=== PATIENT | male | born 1960 | race Caucasian/White ===

== ENCOUNTER 2022-11-09 07:09 | Inpatient (IN) | payer MEDICAID ==
[~2022-11-09] VITALS: Ht 170.2 cm; Wt 65.1 kg
[2022-11-09 07:00] VITALS: BP 95/47
[~2022-11-09 07:09] MED LIST: AMIT10TA6 PO; ASPI-416 PO; ATOR40TA71 PO; GABA600T13 PO; LISI20TA28 PO; OMEP20TA23 PO; ROPI0.5T4 PO
[2022-11-09] MEDS ORDERED: acetaminophen 325mg tablet PO PRN (10:00)
[2022-11-09] MEDS ORDERED: magnesium hydroxide 30ml (MOM) UD suspension PO PRN (10:00)
[2022-11-09] MEDS ORDERED: mag hydrox/Alum hydrox/simeth 30ml oral suspension PO PRN (10:00)
[2022-11-09] MEDS ORDERED: ondansetron/PF 4mg/2ml inj IV PRN (10:00)
[2022-11-09] MEDS: normal saline 1000ml 1,000 ML IV SCH ×3 (10:09→21:31)
[2022-11-09 11:00] VITALS: BP 105/52
--- NOTE | 2022-11-09 11:46 | NUR ---
paged at approx [phone] - Pt 3601T, Maik Hodge, transferred from [facility], was on 5150 hold for SI, currently has a sitter, charge nurse wants to know if we can d/c the sitter. Please advise. Carolina Rios @[phone].
--- NOTE | 2022-11-09 11:50 | NUR ---
US called re: Real US on 11/10/22 am, make pt NPO after midnight until US complete. Orders updated.
[2022-11-09 12:53] LABS: ALBUMIN 3.1 G/DL (3.4-5.0); ANION GAP 6 (8-16); BLOOD UREA NITROGEN 124 MG/DL (7-18); BUN/CREATININE RATIO 19.3 (10.0-20.0); CHLORIDE 106 MMOL/L (99-107); CREATININE 6.43 MG/DL (0.60-1.10); GLUCOSE 116 MG/DL (70-104); MAGNESIUM 1.5 MG/DL (1.5-2.4); PHOSPHORUS 2.3 MG/DL (2.3-4.5); SODIUM 137 MMOL/L (135-145); TOTAL CARBON DIOXIDE 25.2 MMOL/L (24-32); eGFR 9 ML/MIN
[2022-11-09 12:59] LABS: CLARITY,URINE CLEAR (Clear); COLOR,URINE STRAW (Yellow); GLUCOSE, URINE NEGATIVE (Neg); KETONES,URINE NEGATIVE (Neg); LEUKOCYTE ESTERASE ,URINE NEGATIVE (Neg); NITRITES, URINE NEGATIVE (Neg); OCCULT BLOOD,URINE NEGATIVE (Neg); PH,URINE 5.5 (4.8-8.0); PROTEIN,URINE NEGATIVE (Neg); UROBILINOGEN,URINE 0.2 E.U/dL (0.2-1.0)
--- NOTE | 2022-11-09 13:00 | NUR ---
UA obtained and sent to lab.
[2022-11-09 13:03] LABS: UA COLLECTION TYPE CLN CATCH MIDSTREAM
[2022-11-09 13:04] LABS: POTASSIUM 6.3 MMOL/L (3.5-5.1)
[2022-11-09] MEDS ORDERED: PATIROMER CALCIUM SORBITEX 8.4 GM POWD.PACK PO ONE (13:50)
[2022-11-09 15:00] VITALS: BP 112/65
--- NOTE | 2022-11-09 15:07 | NUR ---
Pt has [email or web address] 8.4gm packet due @ 1664. Not in pt specific. Please send KAYODE. thanks, Carolina C @[phone].
--- NOTE | 2022-11-09 16:47 | NUR ---
Page sent to at 5040 - Ua [id number], Maik Hodge, psych 5150 hold, currently has sitter. Please contact charge nurse if we can d/c sitter. Please reconcile home meds. Thanks, Carolina Rios @[phone].
--- NOTE | 2022-11-09 17:40 | NUR ---
gave order for sitter, orders updated.
[2022-11-09 18:00] VITALS: BP 112/65
--- NOTE | 2022-11-09 18:31 | NUR ---
AGREE WITH BLENDING PLANT OPERATOR AM ASSESSMENT.
[2022-11-09] MEDS: enoxaparin 30mg/0.3ml syringe SQ SCH (19:38)
[2022-11-09] MEDS: docusate sod 100mg capsule PO SCH (19:38)
[2022-11-09 20:41] LABS: BASOPHILS # (AUTO) 0.1 X10'3 (0-0.2); BASOPHILS % (AUTO) 0.9 % (0-1); EOSINOPHILS # (AUTO) 0.2 X10'3 (0-0.9); EOSINOPHILS % (AUTO) 3.5 % (0-6); HEMATOCRIT 37.5 % (42.0-52.0); HEMOGLOBIN 12.7 g/dl (14.0-17.9); LYMPHOCYTES # (AUTO) 1.1 X10'3 (1.1-4.8); LYMPHOCYTES % (AUTO) 15.4 % (21-51); MEAN CORPUSCULAR HEMOGLOBIN 32.8 PG (27.0-31.0); MEAN CORPUSCULAR VOLUME 96.5 FL (78-98); MEAN PLATELET VOLUME 7.8 FL (7.4-10.4); MONOCYTES # (AUTO) 0.9 X10'3 (0-0.9); MONOCYTES % (AUTO) 12.4 % (2-12); NEUTROPHILS # (AUTO) 4.7 X10'3 (1.8-7.7); NEUTROPHILS % (AUTO) 67.8 % (42-75); PLATELET COUNT 294 X10'3 (140-440); RED BLOOD COUNT 3.89 X10'6 (4.70-6.10); RED CELL DISTRIBUTION WIDTH 12.9 % (11.5-14.5); WHITE BLOOD COUNT 6.9 X10'3 (4.5-11.0)
[2022-11-09 20:56] LABS: ALANINE AMINOTRANSFERASE 32 U/L (12-78); ALBUMIN 3.3 G/DL (3.4-5.0); ALBUMIN/GLOBULIN RATIO 1.1 (1.1-1.5); ALKALINE PHOSPHATASE 110 IU/L (46-116); ANION GAP 8 (8-16); ASPARTATE AMINO TRANSFERASE 27 U/L (10-37); BILIRUBIN,TOTAL 0.2 MG/DL (0.1-1.0); BLOOD UREA NITROGEN 103 MG/DL (7-18); BUN/CREATININE RATIO 21.8 (10.0-20.0); CHLORIDE 109 MMOL/L (99-107); CREATININE 4.72 MG/DL (0.60-1.10); GLUCOSE 160 MG/DL (70-104); MAGNESIUM 1.4 MG/DL (1.5-2.4); PHOSPHORUS 3.2 MG/DL (2.3-4.5); POTASSIUM 5.3 MMOL/L (3.5-5.1); SODIUM 144 MMOL/L (135-145); TOTAL CARBON DIOXIDE 27.3 MMOL/L (24-32); TOTAL PROTEIN 6.4 G/DL (6.4-8.2); eGFR 13 ML/MIN
[2022-11-09 22:00] VITALS: BP 114/72
[2022-11-10] MEDS: normal saline 1000ml 1,000 ML IV SCH ×2 (01:00→06:00)
[2022-11-10 02:00] VITALS: BP 108/62
[2022-11-10 07:00] VITALS: BP 119/67
[2022-11-10 07:08] LABS: BASOPHILS # (AUTO) 0.1 X10'3 (0-0.2); EOSINOPHILS # (AUTO) 0.3 X10'3 (0-0.9); EOSINOPHILS % (AUTO) 4.3 % (0-6); HEMATOCRIT 36.1 % (42.0-52.0); HEMOGLOBIN 12.3 g/dl (14.0-17.9); LYMPHOCYTES # (AUTO) 1.1 X10'3 (1.1-4.8); LYMPHOCYTES % (AUTO) 19.5 % (21-51); MEAN CORPUSCULAR HEMOGLOBIN 32.7 PG (27.0-31.0); MEAN CORPUSCULAR VOLUME 96.3 FL (78-98); MEAN PLATELET VOLUME 7.7 FL (7.4-10.4); MONOCYTES # (AUTO) 0.8 X10'3 (0-0.9); MONOCYTES % (AUTO) 14.3 % (2-12); NEUTROPHILS # (AUTO) 3.6 X10'3 (1.8-7.7); NEUTROPHILS % (AUTO) 60.9 % (42-75); PLATELET COUNT 272 X10'3 (140-440); RED BLOOD COUNT 3.76 X10'6 (4.70-6.10); WHITE BLOOD COUNT 5.9 X10'3 (4.5-11.0)
[2022-11-10 07:25] LABS: ALBUMIN 3.1 G/DL (3.4-5.0); ANION GAP 7 (8-16); BLOOD UREA NITROGEN 81 MG/DL (7-18); BUN/CREATININE RATIO 27.5 (10.0-20.0); CALCIUM 8.9 MG/DL (8.5-10.1); CHLORIDE 115 MMOL/L (99-107); CREATININE 2.95 MG/DL (0.60-1.10); GLUCOSE 91 MG/DL (70-104); MAGNESIUM 1.2 MG/DL (1.5-2.4); PHOSPHORUS 3.2 MG/DL (2.3-4.5); POTASSIUM 5.8 MMOL/L (3.5-5.1); SODIUM 149 MMOL/L (135-145); TOTAL CARBON DIOXIDE 27.4 MMOL/L (24-32); eGFR 22 ML/MIN
[2022-11-10] MEDS: docusate sod 100mg capsule PO SCH ×2 (08:00→19:13)
[2022-11-10] MEDS: enoxaparin 30mg/0.3ml syringe SQ SCH ×2 (08:00→20:22)
--- NOTE | 2022-11-10 08:19 | NUR ---
Pg sent to @ 0819 - Pt 5013F, Maik Hodge, renal US obtained was placed NPO for this test, may we advance diet back to renal and give oral fluids? Mg is 1.2 would u like to add replacement? Please advise. Carolina Rios @[phone].
--- NOTE | 2022-11-10 09:24 | NUR ---
LN spoke with , gave verbal order to lower NS to 100ml/hr, d/c NPO and change to Renal diet, start strict I/O, and one dose Veltassa 8.4gm packet r/t K+ 5.8. Orders updated.
[2022-11-10 11:05] VITALS: BP 144/73
--- NOTE | 2022-11-10 11:36 | NUR ---
page sent to social service @ 5661 -Pt [id number], patient ready to transfer back to psych, 1792 ordered by , please call [facility] and send labs, med clearance for psych eval. Thanks
--- NOTE | 2022-11-10 12:11 | NUR ---
as clinical instructor i reviewed student nurse physical assessment of patient
[2022-11-10] MEDS ORDERED: PATIROMER CALCIUM SORBITEX 8.4 GM POWD.PACK PO ONE (13:00)
[2022-11-10] MEDS ORDERED: PATIROMER CALCIUM SORBITEX 8.4 GM POWD.PACK PO SCH (13:00)
[2022-11-10] MEDS: dextrose 5%-lactated ringers 1,000 ML IV SCH ×2 (14:42→14:59)
[2022-11-10 15:07] VITALS: BP 137/78
--- NOTE | 2022-11-10 18:45 | NUR ---
AGREE WITH DIRECT MARKETING ANALYST AM ASSESSMENT
[2022-11-10] MEDS: SODIUM ZIRCONIUM CYCLOSILICATE 10 GM POWD.PACK PO SCH (20:27)
[2022-11-11] MEDS: dextrose 5%-lactated ringers 1,000 ML IV SCH ×2 (01:20→10:00)
[2022-11-11] MEDS ORDERED: LORazepam 2 mg/ml vial IV ONE (01:35)
[2022-11-11 06:47] LABS: BASOPHILS # (AUTO) 0.1 X10'3 (0-0.2); BASOPHILS % (AUTO) 0.8 % (0-1); EOSINOPHILS # (AUTO) 0.2 X10'3 (0-0.9); EOSINOPHILS % (AUTO) 2.9 % (0-6); HEMATOCRIT 33.7 % (42.0-52.0); HEMOGLOBIN 11.5 g/dl (14.0-17.9); LYMPHOCYTES # (AUTO) 1.1 X10'3 (1.1-4.8); LYMPHOCYTES % (AUTO) 14.8 % (21-51); MEAN CORPUSCULAR HEMOGLOBIN 32.6 PG (27.0-31.0); MEAN CORPUSCULAR HGB CONC 34.1 g/dL (33.0-36.5); MEAN CORPUSCULAR VOLUME 95.6 FL (78-98); MEAN PLATELET VOLUME 7.9 FL (7.4-10.4); MONOCYTES # (AUTO) 0.8 X10'3 (0-0.9); MONOCYTES % (AUTO) 11.6 % (2-12); NEUTROPHILS # (AUTO) 5.1 X10'3 (1.8-7.7); NEUTROPHILS % (AUTO) 69.9 % (42-75); PLATELET COUNT 268 X10'3 (140-440); RED BLOOD COUNT 3.53 X10'6 (4.70-6.10); RED CELL DISTRIBUTION WIDTH 12.8 % (11.5-14.5); WHITE BLOOD COUNT 7.3 X10'3 (4.5-11.0)
[2022-11-11 07:00] VITALS: BP 127/64
[2022-11-11 07:03] LABS: ANION GAP 7 (8-16); BLOOD UREA NITROGEN 39 MG/DL (7-18); BUN/CREATININE RATIO 26.4 (10.0-20.0); CALCIUM 8.5 MG/DL (8.5-10.1); CHLORIDE 111 MMOL/L (99-107); CREATININE 1.48 MG/DL (0.60-1.10); GLUCOSE 144 MG/DL (70-104); PHOSPHORUS 2.8 MG/DL (2.3-4.5); POTASSIUM 4.2 MMOL/L (3.5-5.1); SODIUM 146 MMOL/L (135-145); TOTAL CARBON DIOXIDE 28.1 MMOL/L (24-32); eGFR 49 ML/MIN
[2022-11-11 07:08] LABS: MAGNESIUM 0.9 MG/DL (1.5-2.4)
--- NOTE | 2022-11-11 07:34 | NUR ---
Page sent to @ 0734 - Pt [id number], Maik Hodge, critical Mg 0.9 @ 0636, no replacement ordered. Please advise. sabrina Rios @[phone].
[2022-11-11] MEDS ORDERED: potassium Cl 20 mEq SR tablet PO PRN ×2 (08:30)
[2022-11-11] MEDS ORDERED: magnesium Cl slow-release 64mg tablet PO PRN (08:30)
[2022-11-11] MEDS: enoxaparin 30mg/0.3ml syringe SQ SCH (09:52)
[2022-11-11] MEDS: SODIUM ZIRCONIUM CYCLOSILICATE 10 GM POWD.PACK PO SCH (09:52)
[2022-11-11] MEDS: docusate sod 100mg capsule PO SCH (09:52)
[2022-11-11 11:00] VITALS: BP 121/68
[2022-11-11] MEDS ORDERED: magnesium 4gm in 100ml NS 100 ML IV ONE (11:25)
--- NOTE | 2022-11-11 11:48 | NUR ---
Page sent to @ 589 - Pt 1700F, [facility] cannot transfer back with IV, IV has infiltrated, may we d/c the D5 and transfer back to CB and do PO meds? Please advise KAYODE awaiting response with bed hold. Carolina Lucas @[phone].
--- NOTE | 2022-11-11 13:13 | NUR ---
gave verbal order to d/c IV and meds (IV was infiltrated). gave final dc order to transfer to [facility]. PEE gave verbal report to Mary Alice on [facility]. Pt signed d/c paperwork and took all belongings to [facility] unit. PIV d/c'd with cannula intact. Pt acknowledged understanding that he was being transferred to [facility] unit.
[2022-11-11] MEDS ORDERED: OLAN15TA3 PO (17:27)
[2022-11-11] MEDS ORDERED: PANT20TA18 PO (17:27)
[2022-11-11] MEDS ORDERED: LISI20TA28 PO (17:27)
[2022-11-11] MEDS ORDERED: ESCI20TA PO (17:28)
[2022-11-11] MEDS ORDERED: QUEtiapine 25mg tablet PO SCH (21:00)
== END 2022-11-11 13:57 | DRG 469 ==
LOC: PCU 3S 07:09
PROVIDERS: ADMIT Internal Medicine; ATTEND Internal Medicine
DX: N17.0 Acute kidney failure with tubular necrosis (principal); R45.851 Suicidal ideations; I95.9 Hypotension, unspecified; E87.8 Other disorders of electrolyte and fluid balance, not elsewhere classified; E86.0 Dehydration; E78.5 Hyperlipidemia, unspecified; G62.9 Polyneuropathy, unspecified; E87.5 Hyperkalemia; E83.42 Hypomagnesemia; F33.9 Major depressive disorder, recurrent, unspecified; I10 Essential (primary) hypertension; Z88.5 Allergy status to narcotic agent; Z88.8 Allergy status to other drugs, medicaments and biological substances; Z79.899 Other long term (current) drug therapy; Z79.82 Long term (current) use of aspirin
CPT/HCPCS: 36415; 80048; 80053; 81003; 82570; 82948; 83735; 83930; 83935; 84100; 84300; 85025; 87081; 93975; A4349; A4649; G0378; J1650; J2060; J7030; J7121

== ENCOUNTER 2023-09-30 19:13 | Emergency (ER) | payer MEDICAID ==
[~2023-09-30] VITALS: Ht 167.6 cm; Wt 75.0 kg
[~2023-09-30 19:13] MED LIST changes: -AMIT10TA6 PO; +ESCI-8 PO; -GABA600T13 PO; -LISI20TA28 PO; +LORA-268 PO; +MAGN64TA10 PO; +OLAN15TA3 PO; -OMEP20TA23 PO; +PANT20TA18 PO; +POTA-197 PO; -ROPI0.5T4 PO
[2023-09-30] MEDS: haloperidol lactate 5mg/ml inj IM ONE (20:50)
[2023-09-30] MEDS: LORazepam 2 mg/ml vial IM ONE (20:50)
[2023-09-30 22:33] LABS: BASOPHILS # (AUTO) 0.1 X10'3 (0-0.2); BASOPHILS % (AUTO) 0.3 % (0-1); EOSINOPHILS # (AUTO) 0.1 X10'3 (0-0.9); EOSINOPHILS % (AUTO) 0.4 % (0-6); HEMOGLOBIN 15.7 g/dl (14.0-17.9); LYMPHOCYTES # (AUTO) 1.8 X10'3 (1.1-4.8); LYMPHOCYTES % (AUTO) 12.3 % (21-51); MEAN CORPUSCULAR HGB CONC 34.9 g/dL (33.0-36.5); MEAN CORPUSCULAR VOLUME 94.5 FL (78-98); MEAN PLATELET VOLUME 7.3 FL (7.4-10.4); MONOCYTES # (AUTO) 1.3 X10'3 (0-0.9); MONOCYTES % (AUTO) 9.1 % (2-12); NEUTROPHILS # (AUTO) 11.4 X10'3 (1.8-7.7); NEUTROPHILS % (AUTO) 77.9 % (42-75); PLATELET COUNT 528 X10'3 (140-440); RED BLOOD COUNT 4.76 X10'6 (4.70-6.10); RED CELL DISTRIBUTION WIDTH 12.9 % (11.5-14.5); WHITE BLOOD COUNT 14.7 X10'3 (4.5-11.0)
[2023-09-30 22:52] LABS: ALBUMIN 4.5 G/DL (3.4-5.0); ANION GAP 16 (8-16); BLOOD UREA NITROGEN 36 MG/DL (7-18); BUN/CREATININE RATIO 29.5 (10.0-20.0); CALCIUM 10.2 MG/DL (8.5-10.1); CHLORIDE 102 MMOL/L (99-107); CREATININE 1.22 MG/DL (0.60-1.10); ETHANOL < 10 MG/DL (<10); GLUCOSE 121 MG/DL (70-104); POTASSIUM 4.4 MMOL/L (3.5-5.1); SODIUM 142 MMOL/L (135-145); THYROID STIMULATING HORMONE 2.57 ulU/ml (0.34-4.50); TOTAL CARBON DIOXIDE 23.8 MMOL/L (24-32); eGFR 61 ML/MIN
[2023-10-01] MEDS ORDERED: ATOR40TA72 (10:08)
[2023-10-01 10:20] LABS: BILIRUBIN,URINE MODERATE (Neg); CLARITY,URINE CLEAR (Clear); GLUCOSE, URINE NEGATIVE (Neg); KETONES,URINE 40 mg/dl (Neg); LEUKOCYTE ESTERASE ,URINE NEGATIVE (Neg); NITRITES, URINE NEGATIVE (Neg); OCCULT BLOOD,URINE NEGATIVE (Neg); PH,URINE 5.5 (4.8-8.0); PROTEIN,URINE NEGATIVE (Neg); UROBILINOGEN,URINE 0.2 E.U/dL (0.2-1.0)
[2023-10-01 10:25] LABS: URINE AMPHETAMINE SCREEN NEGATIVE (Neg); URINE BARBITUATE SCREEN NEGATIVE (Neg); URINE BENZODIAZEPINES SCREEN NEGATIVE (Neg); URINE CANNABINOID SCREEN NEGATIVE (Neg); URINE COCAINE SCREEN NEGATIVE (Neg); URINE METHADONE SCREEN NEGATIVE (Neg); URINE OPIATE SCREEN NEGATIVE (Neg); URINE PHENCYCLIDINE SCREEN NEGATIVE (Neg)
[2023-10-01 10:26] LABS: COLOR,URINE AMBER (Yellow); UA COLLECTION TYPE CLN CATCH MIDSTREAM
[2023-10-01] MEDS ORDERED: LISI20TA28 PO (10:58)
[2023-10-01] MEDS ORDERED: GLIM2TAB6 PO (10:58)
[2023-10-01] MEDS ORDERED: OMEP20CA16 PO (10:58)
[2023-10-01] MEDS ORDERED: MAGN500T2 (10:58)
[2023-10-01] MEDS ORDERED: ESCI-8 PO (10:59)
[2023-10-01 14:10] VITALS: BP 128/79; PULSE 91; RESP 16; TEMP 97.9; O2SAT 94
== END 2023-10-01 13:50 | disposition home or self-care (01) ==
LOC: ER 19:15
DX: F29 Unspecified psychosis not due to a substance or known physiological condition (principal); Z20.822 Contact with and (suspected) exposure to COVID-19; E78.00 Pure hypercholesterolemia, unspecified; I10 Essential (primary) hypertension; E11.9 Type 2 diabetes mellitus without complications; Z73.6 Limitation of activities due to disability; Z88.1 Allergy status to other antibiotic agents; Z88.5 Allergy status to narcotic agent; Z88.8 Allergy status to other drugs, medicaments and biological substances; Z79.82 Long term (current) use of aspirin; Z79.899 Other long term (current) drug therapy
CPT/HCPCS: 36415; 80048; 80305; 80320; 81003; 84443; 85025; 87811; 96372; 99285; J1630; J2060

== ENCOUNTER 2023-10-07 15:05 | Emergency (ER) | payer MEDICAID ==
[~2023-10-07] VITALS: Ht 170.2 cm; Wt 66.5 kg
[~2023-10-07 15:05] MED LIST changes: -ASPI-416 PO; -ATOR40TA71 PO; +ATOR40TA72; +GLIM2TAB6 PO; +LISI20TA28 PO; -LORA-268 PO; +MAGN500T2; -MAGN64TA10 PO; -OLAN15TA3 PO; +OMEP20CA16 PO; -PANT20TA18 PO; -POTA-197 PO
[2023-10-07 15:48] VITALS: BP 116/85; PULSE 94; TEMP 98.5; O2SAT 100
[2023-10-07] MEDS ORDERED: ondansetron/PF 4mg/2ml inj IV ONE (16:55)
[2023-10-07 18:23] LABS: BASOPHILS # (AUTO) 0.1 X10'3 (0-0.2); BASOPHILS % (AUTO) 0.5 % (0-1); EOSINOPHILS # (AUTO) 0.1 X10'3 (0-0.9); EOSINOPHILS % (AUTO) 1.1 % (0-6); HEMATOCRIT 41.4 % (42.0-52.0); HEMOGLOBIN 14.2 g/dl (14.0-17.9); LYMPHOCYTES # (AUTO) 2.2 X10'3 (1.1-4.8); LYMPHOCYTES % (AUTO) 17.7 % (21-51); MEAN CORPUSCULAR HEMOGLOBIN 32.8 PG (27.0-31.0); MEAN CORPUSCULAR HGB CONC 34.4 g/dL (33.0-36.5); MEAN CORPUSCULAR VOLUME 95.4 FL (78-98); MEAN PLATELET VOLUME 7.4 FL (7.4-10.4); MONOCYTES % (AUTO) 7.9 % (2-12); NEUTROPHILS # (AUTO) 9.1 X10'3 (1.8-7.7); NEUTROPHILS % (AUTO) 72.8 % (42-75); PLATELET COUNT 461 X10'3 (140-440); RED BLOOD COUNT 4.34 X10'6 (4.70-6.10); WHITE BLOOD COUNT 12.5 X10'3 (4.5-11.0)
[2023-10-07 18:37] LABS: ALBUMIN 4.3 G/DL (3.4-5.0); ANION GAP 13 (8-16); BLOOD UREA NITROGEN 19 MG/DL (7-18); BUN/CREATININE RATIO 19.4 (10.0-20.0); CHLORIDE 99 MMOL/L (99-107); CREATININE 0.98 MG/DL (0.60-1.10); GLUCOSE 87 MG/DL (70-104); POTASSIUM 3.8 MMOL/L (3.5-5.1); SODIUM 141 MMOL/L (135-145); TOTAL CARBON DIOXIDE 29.1 MMOL/L (24-32); eCRCL 75 ML/MIN; eGFR 78 ML/MIN
[2023-10-07 18:42] LABS: ETHANOL < 10 MG/DL (<10)
[2023-10-07 19:23] LABS: URINE AMPHETAMINE SCREEN NEGATIVE (Neg); URINE BARBITUATE SCREEN NEGATIVE (Neg); URINE BENZODIAZEPINES SCREEN NEGATIVE (Neg); URINE CANNABINOID SCREEN NEGATIVE (Neg); URINE COCAINE SCREEN NEGATIVE (Neg); URINE METHADONE SCREEN NEGATIVE (Neg); URINE OPIATE SCREEN NEGATIVE (Neg); URINE PHENCYCLIDINE SCREEN NEGATIVE (Neg)
[2023-10-07 20:03] VITALS: RESP 16
== END 2023-10-07 20:13 | disposition home or self-care (01) ==
LOC: ER 15:06
DX: F29 Unspecified psychosis not due to a substance or known physiological condition (principal); Z20.822 Contact with and (suspected) exposure to COVID-19; E78.00 Pure hypercholesterolemia, unspecified; I10 Essential (primary) hypertension; F32.A Depression, unspecified; E11.9 Type 2 diabetes mellitus without complications; Z88.1 Allergy status to other antibiotic agents; Z88.5 Allergy status to narcotic agent; Z79.899 Other long term (current) drug therapy
CPT/HCPCS: 36415; 80048; 80305; 80320; 85025; 87811; 99283; 99284

== ENCOUNTER 2023-11-11 10:11 | Emergency (ER) | payer MEDICAID ==
[~2023-11-11] VITALS: Ht 165.1 cm; Wt 75.0 kg
[~2023-11-11 10:11] MED LIST changes: -ATOR40TA72; +ATOR40TA72 PO
[2023-11-11 10:47] LABS: BASOPHILS % (AUTO) 0.4 % (0-1); EOSINOPHILS # (AUTO) 0.1 X10'3 (0-0.9); EOSINOPHILS % (AUTO) 1.3 % (0-6); HEMATOCRIT 43.2 % (42.0-52.0); HEMOGLOBIN 14.6 g/dl (14.0-17.9); LYMPHOCYTES # (AUTO) 1.1 X10'3 (1.1-4.8); LYMPHOCYTES % (AUTO) 11.2 % (21-51); MEAN CORPUSCULAR HEMOGLOBIN 32.4 PG (27.0-31.0); MEAN CORPUSCULAR HGB CONC 33.8 g/dL (33.0-36.5); MEAN CORPUSCULAR VOLUME 95.8 FL (78-98); MEAN PLATELET VOLUME 7.1 FL (7.4-10.4); MONOCYTES # (AUTO) 0.6 X10'3 (0-0.9); MONOCYTES % (AUTO) 6.5 % (2-12); NEUTROPHILS # (AUTO) 8.1 X10'3 (1.8-7.7); NEUTROPHILS % (AUTO) 80.6 % (42-75); PLATELET COUNT 405 X10'3 (140-440); RED BLOOD COUNT 4.51 X10'6 (4.70-6.10); RED CELL DISTRIBUTION WIDTH 12.8 % (11.5-14.5)
[2023-11-11 11:04] LABS: ALBUMIN 3.5 G/DL (3.4-5.0); ANION GAP 7 (8-16); BLOOD UREA NITROGEN 17 MG/DL (7-18); BUN/CREATININE RATIO 15.7 (10.0-20.0); CALCIUM 9.2 MG/DL (8.5-10.1); CHLORIDE 107 MMOL/L (99-107); CREATININE 1.08 MG/DL (0.60-1.10); GLUCOSE 107 MG/DL (70-104); POTASSIUM 3.6 MMOL/L (3.5-5.1); SODIUM 144 MMOL/L (135-145); THYROID STIMULATING HORMONE 0.68 ulU/ml (0.34-4.50); TOTAL CARBON DIOXIDE 29.6 MMOL/L (24-32); eCRCL 63 ML/MIN; eGFR 70 ML/MIN
[2023-11-11 11:07] LABS: BILIRUBIN,URINE NEGATIVE (Neg); CLARITY,URINE SLIGHTLY CLOUDY (Clear); COLOR,URINE YELLOW (Yellow); GLUCOSE, URINE 100 mg/dl (Neg); KETONES,URINE NEGATIVE (Neg); LEUKOCYTE ESTERASE ,URINE NEGATIVE (Neg); NITRITES, URINE NEGATIVE (Neg); OCCULT BLOOD,URINE NEGATIVE (Neg); PH,URINE 6.5 (4.8-8.0); PROTEIN,URINE NEGATIVE (Neg)
[2023-11-11 11:14] LABS: ETHANOL < 10 MG/DL (<10)
[2023-11-11 11:16] LABS: UA COLLECTION TYPE VOIDED
[2023-11-11 11:18] LABS: MUCUS STRANDS MANY /LPF (Neg); SQUAMOUS EPITHELIAL CELL,UR FEW /LPF (FEW)
[2023-11-11 11:19] LABS: BACTERIA,URINE FEW /HPF (Neg); RBC,URINE 0-2 /HPF (0-2); WBC,URINE 0-4 /HPF (0-4)
[2023-11-11] MEDS: LORazepam 1 MG tablet PO ONE (11:28)
[2023-11-11 11:41] LABS: URINE AMPHETAMINE SCREEN NEGATIVE (Neg); URINE BARBITUATE SCREEN NEGATIVE (Neg); URINE BENZODIAZEPINES SCREEN NEGATIVE (Neg); URINE CANNABINOID SCREEN NEGATIVE (Neg); URINE COCAINE SCREEN NEGATIVE (Neg); URINE METHADONE SCREEN NEGATIVE (Neg); URINE OPIATE SCREEN NEGATIVE (Neg); URINE PHENCYCLIDINE SCREEN NEGATIVE (Neg)
[2023-11-12] MEDS: LORazepam 1 MG tablet PO ONE (08:16)
[2023-11-12] MEDS: glimepiride 1 MG tablet PO SCH (08:16)
[2023-11-12] MEDS: pantoprazole 40mg Tablet.DR PO SCH (08:16)
[2023-11-12] MEDS: atorvastatin 20mg tablet PO SCH (08:16)
[2023-11-12] MEDS: ESCITALOPRAM 10 mg tablet 10 MG TABLET PO SCH (08:16)
[2023-11-12] MEDS: LORazepam 1 MG tablet PO PRN (19:43)
[2023-11-13 05:52] VITALS: BP 134/85; PULSE 71; RESP 16; TEMP 98.1; O2SAT 98
[2023-11-13] MEDS: LORazepam 1 MG tablet PO ONE (09:41)
== END 2023-11-13 10:27 | disposition still patient (30) ==
LOC: ER 10:12
DX: F79 Unspecified intellectual disabilities (principal); Z20.822 Contact with and (suspected) exposure to COVID-19; E78.00 Pure hypercholesterolemia, unspecified; I10 Essential (primary) hypertension; E11.9 Type 2 diabetes mellitus without complications; F32.A Depression, unspecified; Z88.1 Allergy status to other antibiotic agents; Z79.899 Other long term (current) drug therapy; Z88.5 Allergy status to narcotic agent; Z79.1 Long term (current) use of non-steroidal anti-inflammatories (NSAID)
CPT/HCPCS: 36415; 80048; 80305; 80320; 81001; 82948; 84443; 85025; 87811; 99285

== ENCOUNTER 2023-11-15 09:48 | Inpatient (IN) | payer MEDICAID ==
[~2023-11-15] VITALS: Ht 172.7 cm; Wt 62.9 kg
[~2023-11-15 09:48] MED LIST changes: -LISI20TA28 PO
[2023-11-15 10:30] LABS: BASOPHILS % (AUTO) 0.3 % (0-1); EOSINOPHILS # (AUTO) 0.1 X10'3 (0-0.9); EOSINOPHILS % (AUTO) 0.8 % (0-6); HEMATOCRIT 44.4 % (42.0-52.0); HEMOGLOBIN 15.4 g/dl (14.0-17.9); LYMPHOCYTES # (AUTO) 1.6 X10'3 (1.1-4.8); LYMPHOCYTES % (AUTO) 14.7 % (21-51); MEAN CORPUSCULAR HEMOGLOBIN 33.3 PG (27.0-31.0); MEAN CORPUSCULAR HGB CONC 34.6 g/dL (33.0-36.5); MEAN CORPUSCULAR VOLUME 96.1 FL (78-98); MONOCYTES # (AUTO) 0.9 X10'3 (0-0.9); MONOCYTES % (AUTO) 8.7 % (2-12); NEUTROPHILS % (AUTO) 75.5 % (42-75); PLATELET COUNT 443 X10'3 (140-440); RED BLOOD COUNT 4.62 X10'6 (4.70-6.10); RED CELL DISTRIBUTION WIDTH 13.1 % (11.5-14.5); WHITE BLOOD COUNT 10.6 X10'3 (4.5-11.0)
[2023-11-15 10:37] LABS: ALBUMIN 3.9 G/DL (3.4-5.0); ANION GAP 11 (8-16); BLOOD UREA NITROGEN 18 MG/DL (7-18); BUN/CREATININE RATIO 19.8 (10.0-20.0); CALCIUM 9.6 MG/DL (8.5-10.1); CHLORIDE 104 MMOL/L (99-107); CREATININE 0.91 MG/DL (0.60-1.10); ETHANOL < 10 MG/DL (<10); GLUCOSE 111 MG/DL (70-104); POTASSIUM 3.4 MMOL/L (3.5-5.1); SODIUM 143 MMOL/L (135-145); TOTAL CARBON DIOXIDE 27.9 MMOL/L (24-32); eCRCL 74 ML/MIN; eGFR 85 ML/MIN
[2023-11-15 10:58] LABS: BILIRUBIN,URINE SMALL (Neg); CLARITY,URINE CLEAR (Clear); COLOR,URINE YELLOW (Yellow); GLUCOSE, URINE NEGATIVE (Neg); KETONES,URINE 15 mg/dl (Neg); LEUKOCYTE ESTERASE ,URINE NEGATIVE (Neg); NITRITES, URINE NEGATIVE (Neg); OCCULT BLOOD,URINE NEGATIVE (Neg); PROTEIN,URINE NEGATIVE (Neg); URINE AMPHETAMINE SCREEN NEGATIVE (Neg); URINE BARBITUATE SCREEN NEGATIVE (Neg); URINE BENZODIAZEPINES SCREEN NEGATIVE (Neg); URINE CANNABINOID SCREEN NEGATIVE (Neg); URINE COCAINE SCREEN NEGATIVE (Neg); URINE METHADONE SCREEN NEGATIVE (Neg); URINE OPIATE SCREEN NEGATIVE (Neg); URINE PHENCYCLIDINE SCREEN NEGATIVE (Neg); UROBILINOGEN,URINE 0.2 E.U/dL (0.2-1.0)
[2023-11-15 11:02] LABS: UA COLLECTION TYPE CLN CATCH MIDSTREAM
[2023-11-15] MEDS: OLANZapine 5mg rapidly disint. tablet PO ONE (11:21)
[2023-11-15] MEDS: LORazepam 1 MG tablet PO ONE (11:21)
[2023-11-15] MEDS: haloperidol lactate 5mg/ml inj IM ONE (12:12)
[2023-11-16] MEDS: LORazepam 1 MG tablet PO ONE (05:23)
[2023-11-16] MEDS: haloperidol 5mg tablet PO ONE (05:23)
[2023-11-16] MEDS ORDERED: TRAZ-251 PO (07:23)
[2023-11-16] MEDS ORDERED: OLAN5TAB29 PO (07:23)
[2023-11-16] MEDS: OLANZapine 5mg rapidly disint. tablet PO SCH (20:41)
[2023-11-16] MEDS: traZODone 50mg tablet PO SCH (20:41)
[2023-11-16] MEDS: haloperidol lactate 5mg/ml inj IM ONE (21:52)
[2023-11-16] MEDS: LORazepam 2 mg/ml vial IM ONE (21:52)
[2023-11-17] MEDS: atorvastatin 20mg tablet PO SCH (09:02)
[2023-11-17] MEDS: pantoprazole 40mg Tablet.DR PO SCH (09:03)
[2023-11-17] MEDS: ESCITALOPRAM 10 mg tablet 10 MG TABLET PO SCH (09:03)
[2023-11-17 20:00] VITALS: BP 129/83; PULSE 74; RESP 16; TEMP 97.6; O2SAT 99
[2023-11-17] MEDS: LIDOcaine 5% patch TP ONE (21:39)
[2023-11-18 06:54] VITALS: RESP 16; O2SAT 99
[2023-11-18 07:23] VITALS: BP 109/68; PULSE 72; RESP 16; TEMP 97.9; O2SAT 97
[2023-11-18] MEDS: MESSAGE TO PHARMACY PO ONE (13:05)
[2023-11-18] MEDS ORDERED: DEXTROSE 15 GM of carb/4 tabs (each vial/BOTTLE has 4 tablets) PO PRN ×2 (13:05)
[2023-11-18] MEDS ORDERED: dextrose 50%-water 50ml dispensing syringe IV PRN ×2 (13:05)
[2023-11-18] MEDS ORDERED: glucagon, human recombinant 1mg kit SUBCUT PRN (13:05)
[2023-11-18] MEDS ORDERED: INSULIN LISPRO 100 UNIT/ML INSULN.PEN MULTI-DOSE SQ SCH (13:05)
[2023-11-18] MEDS: LORazepam 1 MG tablet PO ONE (14:53)
[2023-11-18 19:00] VITALS: RESP 16; O2SAT 99
[2023-11-18 19:10] VITALS: BP 125/75; PULSE 66; RESP 16; TEMP 97.6; O2SAT 99
[2023-11-18] MEDS: insulin glargine (Lantus) pen - multi-dose SQ SCH (21:00)
[2023-11-19 07:00] VITALS: RESP 18; O2SAT 96
[2023-11-19 07:30] VITALS: BP 105/69; PULSE 85; RESP 18; TEMP 97.6; O2SAT 96
[2023-11-19 13:28] LABS: BASOPHILS % (AUTO) 0.5 % (0-1); EOSINOPHILS # (AUTO) 0.2 X10'3 (0-0.9); HEMATOCRIT 45.7 % (42.0-52.0); HEMOGLOBIN 15.6 g/dl (14.0-17.9); LYMPHOCYTES # (AUTO) 1.4 X10'3 (1.1-4.8); LYMPHOCYTES % (AUTO) 15.3 % (21-51); MEAN CORPUSCULAR HEMOGLOBIN 32.9 PG (27.0-31.0); MEAN CORPUSCULAR HGB CONC 34.1 g/dL (33.0-36.5); MEAN CORPUSCULAR VOLUME 96.4 FL (78-98); MONOCYTES # (AUTO) 0.8 X10'3 (0-0.9); MONOCYTES % (AUTO) 8.4 % (2-12); NEUTROPHILS # (AUTO) 6.8 X10'3 (1.8-7.7); NEUTROPHILS % (AUTO) 73.8 % (42-75); PLATELET COUNT 424 X10'3 (140-440); RED BLOOD COUNT 4.74 X10'6 (4.70-6.10); RED CELL DISTRIBUTION WIDTH 13.2 % (11.5-14.5); WHITE BLOOD COUNT 9.2 X10'3 (4.5-11.0)
[2023-11-19 13:45] LABS: ALANINE AMINOTRANSFERASE 43 U/L (12-78); ALBUMIN 3.6 G/DL (3.4-5.0); ALBUMIN/GLOBULIN RATIO 0.9 (1.1-1.5); ALKALINE PHOSPHATASE 106 IU/L (46-116); ANION GAP 5 (8-16); ASPARTATE AMINO TRANSFERASE 34 U/L (10-37); BILIRUBIN,TOTAL 0.4 MG/DL (0.1-1.0); BLOOD UREA NITROGEN 15 MG/DL (7-18); BUN/CREATININE RATIO 16.3 (10.0-20.0); CALCIUM 9.4 MG/DL (8.5-10.1); CHLORIDE 104 MMOL/L (99-107); CREATININE 0.92 MG/DL (0.60-1.10); GLUCOSE 111 MG/DL (70-104); POTASSIUM 3.9 MMOL/L (3.5-5.1); SODIUM 143 MMOL/L (135-145); TOTAL CARBON DIOXIDE 33.7 MMOL/L (24-32); TOTAL PROTEIN 7.5 G/DL (6.4-8.2); eCRCL 74 ML/MIN; eGFR 84 ML/MIN
[2023-11-19] MEDS: LORazepam 1 MG tablet PO PRN (13:50)
[2023-11-19 16:05] LABS: HBSAG SCREEN Negative (Negative); HEP B CORE AB, IGM Negative (Negative); HEP B CORE AB, TOT Negative (Negative); HEPATITIS C VIRUS ANTIBODY Non Reactive (Non Reactive)
[2023-11-19 19:00] VITALS: BP 142/85; PULSE 69; RESP 20; TEMP 96.8; O2SAT 97
[2023-11-19] MEDS: traZODone 50mg tablet PO SCH (20:14)
[2023-11-20 07:00] VITALS: RESP 16; O2SAT 96
[2023-11-20 07:47] LABS: BASOPHILS % (AUTO) 0.5 % (0-1); EOSINOPHILS # (AUTO) 0.2 X10'3 (0-0.9); EOSINOPHILS % (AUTO) 2.3 % (0-6); HEMATOCRIT 45.5 % (42.0-52.0); HEMOGLOBIN 15.7 g/dl (14.0-17.9); LYMPHOCYTES # (AUTO) 1.3 X10'3 (1.1-4.8); LYMPHOCYTES % (AUTO) 16.1 % (21-51); MEAN CORPUSCULAR HEMOGLOBIN 33.1 PG (27.0-31.0); MEAN CORPUSCULAR HGB CONC 34.5 g/dL (33.0-36.5); MEAN CORPUSCULAR VOLUME 95.7 FL (78-98); MEAN PLATELET VOLUME 7.2 FL (7.4-10.4); MONOCYTES # (AUTO) 0.7 X10'3 (0-0.9); MONOCYTES % (AUTO) 9.4 % (2-12); NEUTROPHILS # (AUTO) 5.7 X10'3 (1.8-7.7); NEUTROPHILS % (AUTO) 71.7 % (42-75); PLATELET COUNT 409 X10'3 (140-440); RED BLOOD COUNT 4.76 X10'6 (4.70-6.10); RED CELL DISTRIBUTION WIDTH 13.1 % (11.5-14.5)
[2023-11-20] MEDS: PALIPERIDONE 3 MG TAB.ER.24 PO SCH (07:49)
[2023-11-20 08:00] VITALS: BP 106/69; PULSE 68; RESP 14; TEMP 98; O2SAT 97
[2023-11-20 08:00] LABS: ALANINE AMINOTRANSFERASE 36 U/L (12-78); ALBUMIN 3.7 G/DL (3.4-5.0); ALBUMIN/GLOBULIN RATIO 0.9 (1.1-1.5); ALKALINE PHOSPHATASE 114 IU/L (46-116); ANION GAP 9 (8-16); ASPARTATE AMINO TRANSFERASE 28 U/L (10-37); BILIRUBIN,TOTAL 0.4 MG/DL (0.1-1.0); BLOOD UREA NITROGEN 21 MG/DL (7-18); BUN/CREATININE RATIO 23.6 (10.0-20.0); CALCIUM 9.8 MG/DL (8.5-10.1); CHLORIDE 103 MMOL/L (99-107); CREATININE 0.89 MG/DL (0.60-1.10); GLUCOSE 153 MG/DL (70-104); POTASSIUM 4.2 MMOL/L (3.5-5.1); SODIUM 140 MMOL/L (135-145); TOTAL PROTEIN 7.6 G/DL (6.4-8.2); eCRCL 76 ML/MIN; eGFR 87 ML/MIN
[2023-11-20 19:00] VITALS: RESP 17; O2SAT 97
[2023-11-20 20:00] VITALS: BP 114/63; PULSE 83; RESP 17; TEMP 98.7; O2SAT 97
[2023-11-20] MEDS: divalproex sod 250mg ER (24-hour) tablet PO SCH (20:02)
[2023-11-21 07:00] VITALS: RESP 16; O2SAT 95
[2023-11-21 08:00] VITALS: BP 102/61; PULSE 78; TEMP 96.7; O2SAT 98
[2023-11-21 08:14] LABS: BASOPHILS # (AUTO) 0.1 X10'3 (0-0.2); BASOPHILS % (AUTO) 1.1 % (0-1); EOSINOPHILS # (AUTO) 0.2 X10'3 (0-0.9); EOSINOPHILS % (AUTO) 2.2 % (0-6); HEMATOCRIT 45.1 % (42.0-52.0); HEMOGLOBIN 15.8 g/dl (14.0-17.9); LYMPHOCYTES # (AUTO) 1.4 X10'3 (1.1-4.8); LYMPHOCYTES % (AUTO) 17.9 % (21-51); MEAN CORPUSCULAR HEMOGLOBIN 33.5 PG (27.0-31.0); MEAN CORPUSCULAR HGB CONC 35.1 g/dL (33.0-36.5); MEAN CORPUSCULAR VOLUME 95.4 FL (78-98); MEAN PLATELET VOLUME 7.3 FL (7.4-10.4); MONOCYTES # (AUTO) 0.7 X10'3 (0-0.9); MONOCYTES % (AUTO) 8.6 % (2-12); NEUTROPHILS # (AUTO) 5.6 X10'3 (1.8-7.7); NEUTROPHILS % (AUTO) 70.2 % (42-75); PLATELET COUNT 412 X10'3 (140-440); RED BLOOD COUNT 4.72 X10'6 (4.70-6.10); RED CELL DISTRIBUTION WIDTH 13.2 % (11.5-14.5)
[2023-11-21 08:17] LABS: ALANINE AMINOTRANSFERASE 28 U/L (12-78); ALBUMIN 3.7 G/DL (3.4-5.0); ALKALINE PHOSPHATASE 106 IU/L (46-116); ANION GAP 7 (8-16); ASPARTATE AMINO TRANSFERASE 17 U/L (10-37); BILIRUBIN,TOTAL 0.5 MG/DL (0.1-1.0); BLOOD UREA NITROGEN 22 MG/DL (7-18); BUN/CREATININE RATIO 22.2 (10.0-20.0); CALCIUM 10.1 MG/DL (8.5-10.1); CHLORIDE 102 MMOL/L (99-107); CREATININE 0.99 MG/DL (0.60-1.10); GLUCOSE 152 MG/DL (70-104); POTASSIUM 4.4 MMOL/L (3.5-5.1); SODIUM 141 MMOL/L (135-145); TOTAL CARBON DIOXIDE 31.8 MMOL/L (24-32); TOTAL PROTEIN 7.4 G/DL (6.4-8.2); eCRCL 68 ML/MIN; eGFR 77 ML/MIN
[2023-11-21 19:05] VITALS: RESP 14; O2SAT 98
[2023-11-21 20:00] VITALS: BP 94/61; PULSE 83; RESP 14; TEMP 98; O2SAT 98
[2023-11-22 07:00] VITALS: RESP 16; O2SAT 94
[2023-11-22 07:43] VITALS: BP 117/61; PULSE 67; RESP 16; TEMP 97.8; O2SAT 94
[2023-11-22 08:14] LABS: BASOPHILS # (AUTO) 0.1 X10'3 (0-0.2); EOSINOPHILS # (AUTO) 0.2 X10'3 (0-0.9); EOSINOPHILS % (AUTO) 2.1 % (0-6); HEMATOCRIT 45.4 % (42.0-52.0); HEMOGLOBIN 15.6 g/dl (14.0-17.9); LYMPHOCYTES # (AUTO) 1.4 X10'3 (1.1-4.8); LYMPHOCYTES % (AUTO) 17.4 % (21-51); MEAN CORPUSCULAR HEMOGLOBIN 33.2 PG (27.0-31.0); MEAN CORPUSCULAR HGB CONC 34.4 g/dL (33.0-36.5); MEAN CORPUSCULAR VOLUME 96.4 FL (78-98); MEAN PLATELET VOLUME 7.1 FL (7.4-10.4); MONOCYTES # (AUTO) 0.8 X10'3 (0-0.9); MONOCYTES % (AUTO) 9.6 % (2-12); NEUTROPHILS # (AUTO) 5.5 X10'3 (1.8-7.7); NEUTROPHILS % (AUTO) 69.9 % (42-75); PLATELET COUNT 394 X10'3 (140-440); RED BLOOD COUNT 4.71 X10'6 (4.70-6.10); WHITE BLOOD COUNT 7.9 X10'3 (4.5-11.0)
[2023-11-22 08:17] LABS: ALANINE AMINOTRANSFERASE 27 U/L (12-78); ALBUMIN 3.5 G/DL (3.4-5.0); ALBUMIN/GLOBULIN RATIO 0.9 (1.1-1.5); ALKALINE PHOSPHATASE 133 IU/L (46-116); ANION GAP 9 (8-16); ASPARTATE AMINO TRANSFERASE 13 U/L (10-37); BILIRUBIN,TOTAL 0.3 MG/DL (0.1-1.0); BLOOD UREA NITROGEN 24 MG/DL (7-18); BUN/CREATININE RATIO 22.9 (10.0-20.0); CALCIUM 9.5 MG/DL (8.5-10.1); CHLORIDE 101 MMOL/L (99-107); CREATININE 1.05 MG/DL (0.60-1.10); GLUCOSE 148 MG/DL (70-104); POTASSIUM 4.6 MMOL/L (3.5-5.1); SODIUM 138 MMOL/L (135-145); TOTAL CARBON DIOXIDE 28.4 MMOL/L (24-32); TOTAL PROTEIN 7.3 G/DL (6.4-8.2); eCRCL 65 ML/MIN; eGFR 72 ML/MIN
[2023-11-22 19:31] VITALS: BP 133/76; PULSE 76; RESP 18; TEMP 97.4; O2SAT 98
[2023-11-22 20:16] LABS: CHOL/HDL RATIO 3.6 (0.00-4.99); CHOLESTEROL 171 MG/DL (0-200); HDL CHOLESTEROL 48 MG/DL (35-60); LDL CHOLESTEROL 98 MG/DL (50-100); TRIGLYCERIDES 115 MG/DL (20-135)
[2023-11-22] MEDS: magnesium hydroxide 30ml (MOM) UD suspension PO PRN (21:01)
[2023-11-23 07:00] VITALS: RESP 16; O2SAT 100
[2023-11-23 07:30] VITALS: BP 91/63; PULSE 76; RESP 16; TEMP 97.3; O2SAT 100
[2023-11-23] MEDS: PALIPERIDONE 3 MG TAB.ER.24 PO SCH (07:31)
[2023-11-23 11:27] LABS: BASOPHILS % (AUTO) 0.3 % (0-1); EOSINOPHILS # (AUTO) 0.1 X10'3 (0-0.9); EOSINOPHILS % (AUTO) 1.5 % (0-6); HEMATOCRIT 45.6 % (42.0-52.0); HEMOGLOBIN 15.7 g/dl (14.0-17.9); LYMPHOCYTES # (AUTO) 1.1 X10'3 (1.1-4.8); LYMPHOCYTES % (AUTO) 14.5 % (21-51); MEAN CORPUSCULAR HEMOGLOBIN 33.3 PG (27.0-31.0); MEAN CORPUSCULAR HGB CONC 34.4 g/dL (33.0-36.5); MEAN CORPUSCULAR VOLUME 96.5 FL (78-98); MONOCYTES # (AUTO) 0.6 X10'3 (0-0.9); MONOCYTES % (AUTO) 7.2 % (2-12); NEUTROPHILS # (AUTO) 6.1 X10'3 (1.8-7.7); NEUTROPHILS % (AUTO) 76.5 % (42-75); PLATELET COUNT 356 X10'3 (140-440); RED BLOOD COUNT 4.72 X10'6 (4.70-6.10); RED CELL DISTRIBUTION WIDTH 13.5 % (11.5-14.5); WHITE BLOOD COUNT 7.9 X10'3 (4.5-11.0)
[2023-11-23 11:39] LABS: ALANINE AMINOTRANSFERASE 20 U/L (12-78); ALBUMIN 3.6 G/DL (3.4-5.0); ALBUMIN/GLOBULIN RATIO 0.9 (1.1-1.5); ALKALINE PHOSPHATASE 130 IU/L (46-116); ANION GAP 4 (8-16); ASPARTATE AMINO TRANSFERASE 16 U/L (10-37); BILIRUBIN,TOTAL 0.3 MG/DL (0.1-1.0); BLOOD UREA NITROGEN 18 MG/DL (7-18); BUN/CREATININE RATIO 16.8 (10.0-20.0); CALCIUM 9.3 MG/DL (8.5-10.1); CHLORIDE 97 MMOL/L (99-107); CREATININE 1.07 MG/DL (0.60-1.10); SODIUM 136 MMOL/L (135-145); TOTAL CARBON DIOXIDE 35.4 MMOL/L (24-32); TOTAL PROTEIN 7.6 G/DL (6.4-8.2); eCRCL 63 ML/MIN; eGFR 70 ML/MIN
[2023-11-23 11:57] LABS: GLUCOSE 257 MG/DL (70-104)
[2023-11-23 19:30] VITALS: BP 115/73; PULSE 76; RESP 16; TEMP 97.4; O2SAT 98
[2023-11-24 07:55] VITALS: RESP 16
[2023-11-24 08:51] VITALS: BP 94/60; PULSE 86; RESP 18; TEMP 97.3; O2SAT 97
[2023-11-24 09:23] LABS: % IRON SATURATION 46 % (11-46); IRON 102 UG/DL (53-167); TOTAL IRON BINDING CAPACITY 220 UG/DL (259-388)
[2023-11-24 19:30] VITALS: BP 124/64; PULSE 71; RESP 15; TEMP 98.2; O2SAT 99
[2023-11-25 07:00] VITALS: RESP 16; O2SAT 98
[2023-11-25 08:05] VITALS: BP 110/56; PULSE 73; RESP 16; TEMP 98.2; O2SAT 98
[2023-11-25 18:53] VITALS: BP 113/63; PULSE 77; RESP 18; TEMP 98.1; O2SAT 98
[2023-11-25 19:00] VITALS: RESP 18; O2SAT 98
[2023-11-25 20:18] VITALS: BP 113/63; PULSE 77; RESP 18; TEMP 98.1; O2SAT 98
[2023-11-25 21:51] VITALS: RESP 18; O2SAT 98
[2023-11-26 07:01] VITALS: RESP 16; O2SAT 98
[2023-11-26 08:00] VITALS: BP 92/65; PULSE 73; RESP 16; TEMP 97.3; O2SAT 99
[2023-11-26] MEDS: paliperidone palmitate 156 mg/ml inj.**IM only IM ONE (16:50)
[2023-11-26 19:00] VITALS: RESP 17; O2SAT 98
[2023-11-26 20:00] VITALS: BP 113/69; PULSE 76; RESP 17; TEMP 97.8; O2SAT 98
[2023-11-27 06:58] VITALS: RESP 16; O2SAT 98
[2023-11-27 08:00] VITALS: BP 123/70; PULSE 60; RESP 15; TEMP 98.2; O2SAT 97
[2023-11-27] MEDS: paliperidone palmitate inj 234 MG/1.5 ML SYRINGE IM ONE (14:08)
[2023-11-27 19:00] VITALS: RESP 18; O2SAT 97
[2023-11-27 20:00] VITALS: BP 104/64; PULSE 79; RESP 18; TEMP 97.9; O2SAT 97
[2023-11-28 07:00] VITALS: RESP 15; O2SAT 97
[2023-11-28 08:00] VITALS: BP 116/64; PULSE 58; RESP 14; TEMP 98.5; O2SAT 97
[2023-11-28 19:00] VITALS: RESP 16; O2SAT 97
[2023-11-28 20:00] VITALS: BP 112/67; PULSE 82; RESP 16; TEMP 97.9; O2SAT 97
[2023-11-29 07:00] VITALS: RESP 16; O2SAT 99
[2023-11-29 08:00] VITALS: BP 139/82; PULSE 80; RESP 16; TEMP 98.5; O2SAT 99
[2023-11-29 19:20] VITALS: BP 117/72; PULSE 84; RESP 16; TEMP 97.9; O2SAT 98
[2023-11-30 07:00] VITALS: RESP 18; O2SAT 99
[2023-11-30 08:00] VITALS: BP 114/73; PULSE 79; RESP 18; TEMP 97.8; O2SAT 99
[2023-11-30 19:00] VITALS: RESP 16; O2SAT 100
[2023-11-30 19:19] VITALS: BP 114/54; PULSE 54; RESP 18; TEMP 98.2; O2SAT 95
[2023-12-01 07:00] VITALS: BP 117/65; PULSE 58; RESP 12; TEMP 97.9; O2SAT 96
[2023-12-01 19:00] VITALS: RESP 15; O2SAT 98
[2023-12-01 19:16] VITALS: BP 131/75; PULSE 78; RESP 15; TEMP 98; O2SAT 98
[2023-12-02 07:00] VITALS: BP 116/69; PULSE 62; RESP 16; TEMP 98.7; O2SAT 96
[2023-12-02] MEDS: ibuprofen 200mg tablet PO ONE (12:59)
[2023-12-02 19:00] VITALS: RESP 16; O2SAT 100
[2023-12-02] MEDS ORDERED: OMEP20CA16 PO (19:06)
[2023-12-02] MEDS ORDERED: DIVA250T8 PO (19:06)
[2023-12-02] MEDS ORDERED: TRAZ-251 PO (19:06)
[2023-12-02] MEDS ORDERED: ATOR40TA72 PO (19:06)
[2023-12-02] MEDS ORDERED: ESCI-8 PO (19:06)
[2023-12-02] MEDS ORDERED: PALI3TAB5 PO (19:06)
[2023-12-02] MEDS ORDERED: ATI1T PO (19:06)
[2023-12-02 20:00] VITALS: BP 105/66; PULSE 57; RESP 16; TEMP 97.6; O2SAT 100
[2023-12-02] MEDS: ibuprofen 200mg tablet PO PRN (20:22)
[2023-12-03 07:00] VITALS: RESP 16; O2SAT 99
[2023-12-03 07:30] VITALS: BP 109/71; PULSE 80; RESP 16; TEMP 97.8; O2SAT 99
[2023-12-03 19:00] VITALS: RESP 15; O2SAT 96
[2023-12-03 20:00] VITALS: BP 145/71; PULSE 85; RESP 15; TEMP 98.6; O2SAT 98
[2023-12-04 07:00] VITALS: RESP 18; O2SAT 97
[2023-12-04 07:30] VITALS: BP 108/64; PULSE 81; RESP 18; TEMP 97.3; O2SAT 97
[2023-12-04] MEDS: paliperidone palmitate inj 234 MG/1.5 ML SYRINGE IM ONE (10:28)
[2023-12-04 13:59] VITALS: RESP 18; O2SAT 97
[2023-12-04 19:00] VITALS: RESP 18; O2SAT 97
[2023-12-04 19:06] VITALS: BP 111/70; PULSE 92; RESP 18; TEMP 97.9; O2SAT 97
[2023-12-05 07:00] VITALS: BP 103/70; PULSE 86; RESP 20; TEMP 97.6; O2SAT 97
[2023-12-05 19:00] VITALS: RESP 19; O2SAT 95
[2023-12-05 19:17] VITALS: BP 122/78; PULSE 84; RESP 18; TEMP 97.7; O2SAT 97
[2023-12-06 07:00] VITALS: RESP 18; O2SAT 97
[2023-12-06 08:35] VITALS: BP 104/74; PULSE 74; RESP 18; TEMP 98.2; O2SAT 97
== END 2023-12-06 12:30 | DRG 751 ==
LOC: ER 09:49 → ADULT MH 11-17 16:30 → EEVIPCON 11-17 16:30 → ADULT MH 11-18 06:45
PROVIDERS: ADMIT Psychiatry & Neurology Psychiatry; ATTEND Psychiatry & Neurology Psychiatry
PROC: GZHZZZZ Group Psychotherapy (ICD-10-PCS; principal; 2023-11-22)
DX: F33.3 Major depressive disorder, recurrent, severe with psychotic symptoms (principal); R45.851 Suicidal ideations; E11.42 Type 2 diabetes mellitus with diabetic polyneuropathy; Z91.148 Patient's other noncompliance with medication regimen for other reason; I10 Essential (primary) hypertension; Z20.822 Contact with and (suspected) exposure to COVID-19; M79.662 Pain in left lower leg; F41.9 Anxiety disorder, unspecified; E78.00 Pure hypercholesterolemia, unspecified; Z79.899 Other long term (current) drug therapy; Z91.51 Personal history of suicidal behavior; Z88.5 Allergy status to narcotic agent; Z88.8 Allergy status to other drugs, medicaments and biological substances
CPT/HCPCS: 36415; 71045; 80048; 80053; 80061; 80305; 80320; 81003; 82948; 83036; 83540; 83550; 85025; 86704; 86705; 86803; 87081; 87340; 87522; 87811; 93971; 96372; 99285; A6250; C2617; J1630; J1815; J2060; J2426

== ENCOUNTER 2023-12-27 11:54 | Emergency (ER) | payer MEDICAID ==
[~2023-12-27] VITALS: Ht 170.2 cm; Wt 62.5 kg
[~2023-12-27 11:54] MED LIST changes: +ATI1T PO; +DIVA250T8 PO; -GLIM2TAB6 PO; -MAGN500T2; +PALI3TAB5 PO; +TRAZ-251 PO
[2023-12-27] MEDS: ondansetron/PF 4mg/2ml inj IV ONE (15:13)
[2023-12-27] MEDS: morphine 4 MG/ML inj SYRINge IV ONE (15:13)
[2023-12-27 15:19] LABS: HEMATOCRIT 45.6 % (42.0-52.0); HEMOGLOBIN 15.6 g/dl (14.0-17.9); RED BLOOD COUNT 4.67 X10'6 (4.70-6.10); WHITE BLOOD COUNT 10.3 X10'3 (4.5-11.0)
[2023-12-27 15:20] LABS: BASOPHILS # (AUTO) 0.1 X10'3 (0-0.2); BASOPHILS % (AUTO) 0.5 % (0-1); EOSINOPHILS # (AUTO) 0.2 X10'3 (0-0.9); EOSINOPHILS % (AUTO) 1.9 % (0-6); LYMPHOCYTES # (AUTO) 1.6 X10'3 (1.1-4.8); LYMPHOCYTES % (AUTO) 15.9 % (21-51); MEAN CORPUSCULAR HEMOGLOBIN 33.4 PG (27.0-31.0); MEAN CORPUSCULAR HGB CONC 34.2 g/dL (33.0-36.5); MEAN CORPUSCULAR VOLUME 97.7 FL (78-98); MEAN PLATELET VOLUME 7.2 FL (7.4-10.4); MONOCYTES # (AUTO) 0.9 X10'3 (0-0.9); MONOCYTES % (AUTO) 8.5 % (2-12); NEUTROPHILS # (AUTO) 7.6 X10'3 (1.8-7.7); NEUTROPHILS % (AUTO) 73.2 % (42-75); PLATELET COUNT 291 X10'3 (140-440); RED CELL DISTRIBUTION WIDTH 13.1 % (11.5-14.5)
[2023-12-27 15:32] LABS: ALBUMIN 3.5 G/DL (3.4-5.0); ANION GAP 6 (8-16); BLOOD UREA NITROGEN 22 MG/DL (7-18); BUN/CREATININE RATIO 25.9 (10.0-20.0); CALCIUM 9.6 MG/DL (8.5-10.1); CHLORIDE 102 MMOL/L (99-107); CREATININE 0.85 MG/DL (0.60-1.10); GLUCOSE 145 MG/DL (70-104); POTASSIUM 4.1 MMOL/L (3.5-5.1); SODIUM 139 MMOL/L (135-145); eCRCL 82 ML/MIN; eGFR > 90 ML/MIN
[2023-12-27] MEDS ORDERED: iohexol 300mg/ml 100ml inj. ONE (16:16)
[2023-12-27 17:34] LABS: BILIRUBIN,URINE NEGATIVE (Neg); CLARITY,URINE CLEAR (Clear); COLOR,URINE YELLOW (Yellow); GLUCOSE, URINE NEGATIVE (Neg); KETONES,URINE NEGATIVE (Neg); LEUKOCYTE ESTERASE ,URINE NEGATIVE (Neg); NITRITES, URINE NEGATIVE (Neg); OCCULT BLOOD,URINE NEGATIVE (Neg); PH,URINE 6.5 (4.8-8.0); PROTEIN,URINE NEGATIVE (Neg); UROBILINOGEN,URINE 0.2 E.U/dL (0.2-1.0)
[2023-12-27 17:37] LABS: UA COLLECTION TYPE CLN CATCH MIDSTREAM
[2023-12-27 17:52] VITALS: BP 92/64; PULSE 86; RESP 18; TEMP 98.7; O2SAT 98
== END 2023-12-27 17:54 | disposition home or self-care (01) ==
LOC: ER 11:55
DX: K40.90 Unilateral inguinal hernia, without obstruction or gangrene, not specified as recurrent (principal); E78.00 Pure hypercholesterolemia, unspecified; I10 Essential (primary) hypertension; E11.9 Type 2 diabetes mellitus without complications; F32.A Depression, unspecified; Z88.5 Allergy status to narcotic agent; Z88.8 Allergy status to other drugs, medicaments and biological substances; Z79.899 Other long term (current) drug therapy
CPT/HCPCS: 36415; 74177; 80048; 81003; 85025; 96374; 96375; 99285; J2270; J2405; J3490; Q9967

== ENCOUNTER 2024-01-13 08:45 | Outpatient (CLI) | payer MEDICAID | END 2024-01-13 23:59 | disposition home or self-care (01) | LOC: RAD 08:45 | PROVIDERS: ATTEND Nurse Practitioner Psychiatric/Mental Health | DX: I44.4 Left anterior fascicular block (principal); Z79.899 Other long term (current) drug therapy | CPT/HCPCS: 93005 ==

== ENCOUNTER 2024-01-24 17:35 | Emergency (ER) | payer MEDICAID ==
[~2024-01-24] VITALS: Ht 170.2 cm; Wt 64.0 kg
[2024-01-24 17:42] VITALS: TEMP 97.5
[2024-01-24 18:25] LABS: BASOPHILS # (AUTO) 0.1 X10'3 (0-0.2); BASOPHILS % (AUTO) 1.3 % (0-1); EOSINOPHILS # (AUTO) 0.1 X10'3 (0-0.9); EOSINOPHILS % (AUTO) 1.5 % (0-6); HEMOGLOBIN 13.4 g/dl (14.0-17.9); LYMPHOCYTES # (AUTO) 1.5 X10'3 (1.1-4.8); LYMPHOCYTES % (AUTO) 21.5 % (21-51); MEAN CORPUSCULAR HEMOGLOBIN 33.3 PG (27.0-31.0); MEAN CORPUSCULAR HGB CONC 34.3 g/dL (33.0-36.5); MEAN CORPUSCULAR VOLUME 97.2 FL (78-98); MEAN PLATELET VOLUME 7.2 FL (7.4-10.4); MONOCYTES # (AUTO) 0.7 X10'3 (0-0.9); MONOCYTES % (AUTO) 10.1 % (2-12); NEUTROPHILS # (AUTO) 4.4 X10'3 (1.8-7.7); NEUTROPHILS % (AUTO) 65.6 % (42-75); PLATELET COUNT 247 X10'3 (140-440); RED BLOOD COUNT 4.01 X10'6 (4.70-6.10); RED CELL DISTRIBUTION WIDTH 13.8 % (11.5-14.5); WHITE BLOOD COUNT 6.8 X10'3 (4.5-11.0)
[2024-01-24 18:45] LABS: ALBUMIN 3.4 G/DL (3.4-5.0); ANION GAP 5 (8-16); BLOOD UREA NITROGEN 18 MG/DL (7-18); BUN/CREATININE RATIO 18.9 (10.0-20.0); CHLORIDE 102 MMOL/L (99-107); CREATININE 0.95 MG/DL (0.60-1.10); ETHANOL < 10 MG/DL (<10); GLUCOSE 178 MG/DL (70-104); POTASSIUM 3.4 MMOL/L (3.5-5.1); SODIUM 139 MMOL/L (135-145); THYROID STIMULATING HORMONE 2.21 ulU/ml (0.34-4.50); TOTAL CARBON DIOXIDE 32.4 MMOL/L (24-32); eCRCL 74 ML/MIN; eGFR 81 ML/MIN
[2024-01-24 19:30] LABS: BILIRUBIN,URINE NEGATIVE (Neg); CLARITY,URINE CLEAR (Clear); COLOR,URINE YELLOW (Yellow); GLUCOSE, URINE NEGATIVE (Neg); KETONES,URINE NEGATIVE (Neg); LEUKOCYTE ESTERASE ,URINE NEGATIVE (Neg); NITRITES, URINE NEGATIVE (Neg); OCCULT BLOOD,URINE NEGATIVE (Neg); PROTEIN,URINE NEGATIVE (Neg); UROBILINOGEN,URINE 0.2 E.U/dL (0.2-1.0)
[2024-01-24 19:38] LABS: UA COLLECTION TYPE CLN CATCH MIDSTREAM; URINE AMPHETAMINE SCREEN NEGATIVE (Neg); URINE BARBITUATE SCREEN NEGATIVE (Neg); URINE BENZODIAZEPINES SCREEN NEGATIVE (Neg); URINE CANNABINOID SCREEN NEGATIVE (Neg); URINE COCAINE SCREEN NEGATIVE (Neg); URINE METHADONE SCREEN NEGATIVE (Neg); URINE PHENCYCLIDINE SCREEN NEGATIVE (Neg)
[2024-01-25] MEDS ORDERED: DIVA500T39 PO (07:13)
[2024-01-25] MEDS ORDERED: PALI234D IM (07:13)
[2024-01-25] MEDS ORDERED: PALI6TAB6 (07:13)
[2024-01-25] MEDS ORDERED: ATOM40CA7 PO (07:13)
[2024-01-25 07:57] VITALS: BP 140/87; PULSE 89; RESP 16; O2SAT 96
== END 2024-01-25 12:44 | disposition home or self-care (01) ==
LOC: ER 17:37
DX: F23 Brief psychotic disorder (principal); E78.00 Pure hypercholesterolemia, unspecified; I10 Essential (primary) hypertension; E11.9 Type 2 diabetes mellitus without complications; Z88.1 Allergy status to other antibiotic agents; Z88.8 Allergy status to other drugs, medicaments and biological substances; Z79.899 Other long term (current) drug therapy
CPT/HCPCS: 36415; 80048; 80305; 80320; 81003; 84443; 85025; 99284

== ENCOUNTER 2024-02-02 16:18 | Emergency (ER) | payer MEDICAID ==
[~2024-02-02] VITALS: Ht 175.3 cm; Wt 60.0 kg
[~2024-02-02 16:18] MED LIST changes: +ATOM40CA7 PO; -DIVA250T8 PO; +DIVA500T39 PO; +PALI234D IM; -PALI3TAB5 PO; +PALI6TAB6
[2024-02-02 16:33] VITALS: BP 115/78; PULSE 104; RESP 18; TEMP 97.7; O2SAT 95
[2024-02-02 18:20] LABS: BASOPHILS % (AUTO) 0.2 % (0-1); EOSINOPHILS # (AUTO) 0.1 X10'3 (0-0.9); EOSINOPHILS % (AUTO) 1.4 % (0-6); HEMATOCRIT 43.9 % (42.0-52.0); HEMOGLOBIN 15.1 g/dl (14.0-17.9); LYMPHOCYTES # (AUTO) 1.1 X10'3 (1.1-4.8); LYMPHOCYTES % (AUTO) 13.2 % (21-51); MEAN CORPUSCULAR HEMOGLOBIN 33.2 PG (27.0-31.0); MEAN CORPUSCULAR HGB CONC 34.3 g/dL (33.0-36.5); MEAN PLATELET VOLUME 7.2 FL (7.4-10.4); MONOCYTES # (AUTO) 1.2 X10'3 (0-0.9); MONOCYTES % (AUTO) 13.5 % (2-12); NEUTROPHILS # (AUTO) 6.1 X10'3 (1.8-7.7); NEUTROPHILS % (AUTO) 71.7 % (42-75); PLATELET COUNT 280 X10'3 (140-440); RED BLOOD COUNT 4.53 X10'6 (4.70-6.10); RED CELL DISTRIBUTION WIDTH 13.9 % (11.5-14.5); WHITE BLOOD COUNT 8.5 X10'3 (4.5-11.0)
[2024-02-02 18:30] LABS: ALANINE AMINOTRANSFERASE 76 U/L (12-78); ALBUMIN 3.4 G/DL (3.4-5.0); ALBUMIN/GLOBULIN RATIO 0.9 (1.1-1.5); ALKALINE PHOSPHATASE 68 IU/L (46-116); ANION GAP 3 (8-16); ASPARTATE AMINO TRANSFERASE 131 U/L (10-37); BILIRUBIN,TOTAL 0.5 MG/DL (0.1-1.0); BLOOD UREA NITROGEN 17 MG/DL (7-18); BUN/CREATININE RATIO 17.5 (10.0-20.0); CALCIUM 9.4 MG/DL (8.5-10.1); CHLORIDE 101 MMOL/L (99-107); CREATININE 0.97 MG/DL (0.60-1.10); ETHANOL < 10 MG/DL (<10); GLUCOSE 179 MG/DL (70-104); POTASSIUM 3.5 MMOL/L (3.5-5.1); SODIUM 141 MMOL/L (135-145); TOTAL CARBON DIOXIDE 37.3 MMOL/L (24-32); TOTAL PROTEIN 7.1 G/DL (6.4-8.2); eCRCL 68 ML/MIN; eGFR 79 ML/MIN
[2024-02-02 19:08] LABS: URINE AMPHETAMINE SCREEN NEGATIVE (Neg); URINE BARBITUATE SCREEN NEGATIVE (Neg); URINE BENZODIAZEPINES SCREEN NEGATIVE (Neg); URINE CANNABINOID SCREEN NEGATIVE (Neg); URINE COCAINE SCREEN NEGATIVE (Neg); URINE METHADONE SCREEN NEGATIVE (Neg); URINE OPIATE SCREEN NEGATIVE (Neg); URINE PHENCYCLIDINE SCREEN NEGATIVE (Neg)
== END 2024-02-02 19:46 | disposition left against medical advice (07) ==
LOC: ER 16:19
DX: F23 Brief psychotic disorder (principal); Z73.6 Limitation of activities due to disability; E78.00 Pure hypercholesterolemia, unspecified; I10 Essential (primary) hypertension; E11.9 Type 2 diabetes mellitus without complications; Z88.1 Allergy status to other antibiotic agents; Z88.5 Allergy status to narcotic agent; Z79.899 Other long term (current) drug therapy; Z79.1 Long term (current) use of non-steroidal anti-inflammatories (NSAID)
CPT/HCPCS: 36415; 80053; 80305; 80320; 85025; 99284